=== PATIENT | male | born 1955 ===

== ENCOUNTER 2022-08-01 22:43 | Emergency (ER) | payer BC ==
--- OUTSIDE RECORDS SUMMARY | 2022-08-01 22:47 | XMS REPORT | Continuity of Care Document ---
:1955 Author Organization [facility] t Address [address] [facility]. [address] [place] [address] Care Team Providers Name Role Phone Lai Richmond MD Primary Care Physician Jamilah_Juju Attending Clinician Unavailable Kirby Askew Attending Clinician [phone] Jamilah_Juju Admitting Clinician Unavailable KIRBY ASKEW Admitting Clinician Unavailable Payers Payer Name Policy Type Policy Number Effective Date Expiration Date S n[place] [id number] 2016 - [employer] (POS) 00:00:00 Problems Condition Condition Condition Status Onset Resolution Last Treating Co mments Source Name Details Category Date Date Treatment Clinician Date Carcinoma Carcinoma Problem Active [facility]14 [facility] prostate Prostate 00:00: Urolog y 00 Prostate Prostate Disease Active [facility] [address] [facility] 00:00: [facility]ospita 00 l Allergies, Adverse Reactions, Alerts Allergy Allergy Status Severity Reaction(s) Onset Inactive Treating Comm ents Source Name Type Date Date Clinician No Known DA Active [facility] 2018-02 [facility] [place] [facility] No Known DA Active [facility] 2018-02 [facility] [place] [facility] 00[facility] [place] DA Active [place] [facility] 6[facility]14 [place] 00:[facility]: [facility] 00 dic [facility]osp[facility] l Social History Social Habit Start Date Stop Date Quantity Comments Source [facility] History of tobacco Occasional [facility] tobacco smoker Hospital Alcohol intake 2019-04-30 2019-04-30 Current drinker [facility] 00:00:00 00:00:00 of alcohol Hospital (finding) History of Social 2019-04-30 2019-04-[address] function 00:00:00 00:00:00 Hospital Tobacco use and 2019-04-29 2019-04-29 Smokeless tobacco [facility] exposure 00:00:00 00:00:00 non-user Hospital Alcohol Comment 2019-04-20 2019-04-20 very rare [facility] 00:00:00 00:00:00 Hospital Tobacco Comment 2019-04-20 2019-04-20 1-2 cigars per [facility] 00:00:00 00:00:00 week Hospital Sex Assigned At [birth year] [facility] 00:00:00 00:00:00 [facility] Smoking Status Start Date Stop Date Source Never Smoker [facility] Occasional tobacco smoker 2019-04-29 00:00:00 [facility] Medications Ordered Filled Start Stop Current Ordering Indication Dosage Frequency Signature Comments Components Source Medication Medication Date Date Medication? Clinician (SIG) Name Name glimepiride Yes 2mg QD Take 2 mg M ethodi (AMARYL) 2 3-[address] MG tablet 19:22: nightly. Hosp lucrecia 10 l gluc 2019-0 Yes 1{tbl} Q.5D Take 1 [facility] lama/chondro 3-[address] lama A/vit 19:22: mouth 2 Hospit a C/Mn 10 (two) l (GLUCOSAMIN times a E 1500 day. COMPLEX ORAL) amLODIPine- 0 Yes 1{capsu QD Take 1 M ethodi benazepriL 3-13 le} capsule by st (LOTREL) 19:22: mouth Hospita 10-40 mg 10 nightly. l per capsule atorvastati Yes 20mg QD Take 20 mg Method[facility] n (LIPITOR) 3-[address] 20 MG 19:22: every Hospita tablet 10 morning. l colchicine 2019-0 Yes .6mg QD Take 0.6 Met hodi 0.6 mg 3-[address] capsule 19:22: mouth Hospita 10 nightly as l needed. levothyroxi 2020-0 Yes 25ug QD Take 25 Met hodi ne 3-[address] (SYNTHROID) 19:22: mouth Hospi ta 25 mcg 10 nightly. l tablet methocarbam 2020-0 Yes 750mg Q6H Take 750 M ethodi oL 3-[address] (ROBAXIN) 19:22: mouth Hospita 750 MG 10 every 6 l tablet (six) hours as needed. pantoprazol 2020-0 Yes 40mg Take 40 mg [facility] e 3-[address] (PROTONIX) 19:22: as needed. H ospita 40 MG EC 10 l tablet pregabalin 2020-0 Yes 50mg Q.5D Take 50 mg M ethodi (LYRICA) 50 3-[address] MG capsule 19:22: (two) Hospit a 10 times a l day. amlodipine amlodipine No amlodipine [place] 10 10 10 [facility] mg-benazepr mg-benazepr mg-benazep Urology il 40 mg il 40 mg ril 40 mg capsule capsule capsule TAKE 1 TAKE 1 TAKE 1 CAPSULE BY CAPSULE BY CAPSULE BY MOUTH DAILY MOUTH DAILY MOUTH DAILY atorvastati atorvastati No atorvastat [place] n 40 mg n 40 mg in 40 mg [facility] tablet TAKE tablet TAKE tablet Urology 1 TABLET BY 1 TABLET BY TAKE 1 MOUTH DAILY MOUTH DAILY TABLET BY MOUTH DAILY Bi Mix DS 5 Bi Mix DS 5 No Bi Mix DS [place] mL vial. mL vial. 5 mL vial. M etro Papaverine Papaverine Papaverine Urology HCl HCl HCl 30mg/mL, 30mg/mL, 30mg/mL, Phentolamin Phentolamin Phentolami e Mesylate e Mesylate ne 2mg/mL 2mg/mL Mesylate start @ start @ 2mg/mL 0.1cc and 0.1cc and start @ can titrate can titrate 0.1cc and up up can titrate up clopidogrel clopidogrel No clopidogre [place] 75 mg 75 mg l 75 mg [facility] tablet TAKE tablet TAKE tablet Urology 1 TABLET BY 1 TABLET BY TAKE 1 MOUTH DAILY MOUTH DAILY TABLET BY MOUTH DAILY colchicine colchicine No colchicine [place] 0.6 mg 0.6 mg 0.6 mg [facility] capsule capsule capsule Urolog y colestipol colestipol No colestipol [place] 1 gram 1 gram 1 gram [facility] tablet tablet tablet Urology COMPOUNDED COMPOUNDED No COMPOUNDED [place] MEDICATION MEDICATION MEDICATION [facility] TADALAFIL TADALAFIL TADALAFIL Urology (SR)(SIZE (SR)(SIZE (SR)(SIZE 1) 7 MG 1) 7 MG 1) 7 MG CAPSULE CAPSULE CAPSULE TAKE 1 TAKE 1 TAKE 1 CAPSULE BY CAPSULE BY CAPSULE BY MOUTH DAILY MOUTH DAILY MOUTH DAILY dexamethaso dexamethaso No dexamethas [place] ne ne one [facility] glimepiride glimepiride No glimepirid [place] 4 mg tablet 4 mg tablet e 4 mg [facility] TAKE 1 TAKE 1 tablet Urology TABLET BY TABLET BY TAKE 1 MOUTH DAILY MOUTH DAILY TABLET BY MOUTH DAILY levothyroxi levothyroxi No levothyrox [place] ne 25 mcg ne 25 mcg ine 25 mcg [facility] tablet TAKE tablet TAKE tablet Urology 1 TABLET BY 1 TABLET BY TAKE 1 MOUTH EVERY MOUTH EVERY TABLET BY MORNING ON MORNING ON MOUTH AN EMPTY AN EMPTY EVERY STOMACH STOMACH MORNING ON AN EMPTY STOMACH lidocaine-p lidocaine-p No lidocaine- [place] rilocaine rilocaine prilocaine [facility] 2.5 %-2.5 % 2.5 %-2.5 % 2.5 %-2.5 Urology topical topical % topical cream cream cream methocarbam methocarbam No methocarba [place] ol 750 mg ol 750 mg mol 750 mg [facility] tablet tablet tablet Urology ofloxacin ofloxacin No ofloxacin [place] 0.3 % ear 0.3 % ear 0.3 % ear [facility] drops drops drops Urology pantoprazol pantoprazol No pantoprazo [place] e 40 mg e 40 mg le 40 mg [facility] tablet,carissa tablet,carissa tablet,del Urology yed release yed release ayed release pregabalin pregabalin No pregabalin [place] 75 mg 75 mg 75 mg [facility] capsule capsule capsule Urolog y TAKE 1 TAKE 1 TAKE 1 CAPSULE BY CAPSULE BY CAPSULE BY MOUTH TWICE MOUTH TWICE MOUTH DAILY DAILY TWICE DAILY Quad Mix Quad Mix No Quad Mix [facility] 5ML 5ML 5ML [facility] Vial.Papave Vial.Papave Vial.Papav Urology rine rine erine 30mg/mL, 30mg/mL, 30mg/mL, Phentolamin Phentolamin Phentolami e 2mg/mL, e 2mg/mL, ne 2mg/mL, Prostagland Prostagland Prostaglan in E1 in E1 din E1 20mcg/mL, 20mcg/mL, 20mcg/mL, Atropine Atropine Atropine Sulfate Sulfate Sulfate 200mcg/mL 200mcg/mL 200mcg/mL start @ start @ start @ 0.1cc and 0.1cc and 0.1cc and can titrate can titrate can up up titrate up Quad mix DS Quad mix DS No Quad mix [place] 5 mL vial. 5 mL vial. DS 5 mL [facility] Papaverine Papaverine vial. Ur ology 30mg/mL, 30mg/mL, Papaverine Phentolamin Phentolamin 30mg/mL, e Mesylate e Mesylate Phentolami 4mg/mL, 4mg/mL, ne Prostagland Prostagland Mesylate in E1 in E1 4mg/mL, 40mcg/mL, 40mcg/mL, Prostaglan Atropine Atropine din E1 Sulfate Sulfate 40mcg/mL, 400mcg/mL 400mcg/mL Atropine start @ start @ Sulfate 0.1cc & can 0.1cc & can 400mcg/mL titrate up titrate up start @ 0.1cc & can titrate up Tadalafil 7 Tadalafil 7 No Tadalafil [place] mg 7 mg mg 7 mg 7 mg 7 mg Metr o orally orally orally Urology 30-60 30-60 30-60 minutes minutes minutes prior to prior to prior to sexual sexual sexual activity 1 activity 1 activity 1 po qd po qd po qd triamcinolo triamcinolo No triamcinol [place] ne ne one [facility] acetonide acetonide acetonide Urology 0.1 % 0.1 % 0.1 % topical topical topical cream cream cream amlodipine amlodipine No amlodipine [place] 10 10 10 [facility] mg-benazepr mg-benazepr mg-benazep Urology il 40 mg il 40 mg ril 40 mg capsule capsule capsule TAKE 1 TAKE 1 TAKE 1 CAPSULE BY CAPSULE BY CAPSULE BY MOUTH DAILY MOUTH DAILY MOUTH DAILY atorvastati atorvastati No atorvastat [place] n 40 mg n 40 mg in 40 mg [facility] tablet TAKE tablet TAKE tablet Urology 1 TABLET BY 1 TABLET BY TAKE 1 MOUTH DAILY MOUTH DAILY TABLET BY MOUTH DAILY BD BD No BD [place] Ultra-Fine Ultra-Fine Ultra-Fine [facility] Mini Pen Mini Pen Mini Pen Uro logy Needle 31 Needle 31 Needle 31 gauge x gauge x gauge x 3" USE 05/02" USE 05/02" USE ONCE A DAY ONCE A DAY ONCE A DAY clopidogrel clopidogrel No clopidogre [place] 75 mg 75 mg l 75 mg [facility] tablet TAKE tablet TAKE tablet Urology 1 TABLET BY 1 TABLET BY TAKE 1 MOUTH DAILY MOUTH DAILY TABLET BY MOUTH DAILY colchicine colchicine No colchicine [place] 0.6 mg 0.6 mg 0.6 mg [facility] capsule capsule capsule Urolog y colestipol colestipol No colestipol [place] 1 gram 1 gram 1 gram [facility] tablet TAKE tablet TAKE tablet Urology 1 TABLET BY 1 TABLET BY TAKE 1 MOUTH TWICE MOUTH TWICE TABLET BY DAILY WITH DAILY WITH MOUTH FLUID. FLUID. TWICE GIVEN FOR GIVEN FOR DAILY WITH DIARRHEA DIARRHEA FLUID. GIVEN FOR DIARRHEA dexamethaso dexamethaso No dexamethas [place] ne ne one [facility] glimepiride glimepiride No glimepirid [place] 4 mg tablet 4 mg tablet e 4 mg [facility] TAKE 1 TAKE 1 tablet Urology TABLET BY TABLET BY TAKE 1 MOUTH DAILY MOUTH DAILY TABLET BY MOUTH DAILY levothyroxi levothyroxi No levothyrox [place] ne 25 mcg ne 25 mcg ine 25 mcg [facility] tablet TAKE tablet TAKE tablet Urology 1 TABLET BY 1 TABLET BY TAKE 1 MOUTH EVERY MOUTH EVERY TABLET BY MORNING ON MORNING ON MOUTH AN EMPTY AN EMPTY EVERY STOMACH STOMACH MORNING ON AN EMPTY STOMACH methocarbam methocarbam No methocarba [place] ol 750 mg ol 750 mg mol 750 mg [facility] tablet tablet tablet Urology pantoprazol pantoprazol No pantoprazo [place] e 40 mg e 40 mg le 40 mg [facility] tablet,carissa tablet,carissa tablet,del Urology yed release yed release ayed release pioglitazon pioglitazon No pioglitazo [place] e 15 mg e 15 mg ne 15 mg [facility] tablet TAKE tablet TAKE tablet Urology 1 TABLET BY 1 TABLET BY TAKE 1 MOUTH EVERY MOUTH EVERY TABLET BY DAY DAY MOUTH EVERY DAY pregabalin pregabalin No pregabalin [place] 75 mg 75 mg 75 mg [facility] capsule capsule capsule Urolog y TAKE 1 TAKE 1 TAKE 1 CAPSULE BY CAPSULE BY CAPSULE BY MOUTH TWICE MOUTH TWICE MOUTH DAILY DAILY TWICE DAILY Quad mix DS Quad mix DS No Quad mix [place] 5 mL vial. 5 mL vial. DS 5 mL [facility] Papaverine Papaverine vial. Ur ology 30mg/mL, 30mg/mL, Papaverine Phentolamin Phentolamin 30mg/mL, e Mesylate e Mesylate Phentolami 4mg/mL, 4mg/mL, ne Prostagland Prostagland Mesylate in E1 in E1 4mg/mL, 40mcg/mL, 40mcg/mL, Prostaglan Atropine Atropine din E1 Sulfate Sulfate 40mcg/mL, 400mcg/mL 400mcg/mL Atropine start @ start @ Sulfate 0.1cc and 0.1cc and 400mcg/mL can titrate can titrate start @ up up 0.1cc and can titrate up Tadalafil 7 Tadalafil 7 No Tadalafil [facility] mg 7 mg mg 7 mg 7 mg 7 mg Met[facility] o orally orally orally Urology 30-60 30-60 30-60 minutes minutes minutes prior to prior to prior to sexual sexual sexual activity 1 activity 1 activity 1 po qd po qd po qd testosteron testosteron No .5mL Q1W testostero [facility] e cypionate e cypionate ne M etro 200 mg/mL 200 mg/mL cypionate Urology intramuscul intramuscul 200 mg/mL ar oil ar oil intramuscu Inject 0.5 Inject 0.5 lar oil mL every mL every Inject 0.5 week by week by mL every intramuscul intramuscul week by ar route. ar route. intramuscu lar route. Xyosted 100 Xyosted 100 No 100mg Q1W Xyosted [place] mg/0.5 mL mg/0.5 mL 100 mg/0.5 [facility] subcutaneou subcutaneou mL U rology s s subcutaneo auto-inject auto-inject us or Inject or Inject auto-injec 100 mg 100 mg tor Inject every week every week 100 mg by by every week subcutaneou subcutaneou by s route. s route. subcutaneo us route. amlodipine amlodipine No amlodipine [facility] 10 mg 10 mg 10 mg [facility] tablet TAKE tablet TAKE tablet Urology 1 TABLET BY 1 TABLET BY TAKE 1 MOUTH EVERY MOUTH EVERY TABLET BY DAY DAY MOUTH EVERY DAY amlodipine amlodipine No amlodipine [facility] 10 10 10 [facility] mg-benazepr mg-benazepr mg-benazep Urology il 40 mg il 40 mg ril 40 mg capsule capsule capsule TAKE 1 TAKE 1 TAKE 1 CAPSULE BY CAPSULE BY CAPSULE BY MOUTH DAILY MOUTH DAILY MOUTH DAILY amoxicillin amoxicillin No amoxicilli [place] [phone] 875 [facility] mg-potassiu mg-potassiu mg-potassi Urology m m um clavulanate clavulanate clavulanat 125 mg 125 mg e 125 mg tablet tablet tablet atorvastati atorvastati No atorvastat [place] n 40 mg n 40 mg in 40 mg [facility] tablet TAKE tablet TAKE tablet Urology 1 TABLET BY 1 TABLET BY TAKE 1 MOUTH DAILY MOUTH DAILY TABLET BY MOUTH DAILY BD BD No BD [place] Ultra-Fine Ultra-Fine Ultra-Fine [facility] Mini Pen Mini Pen Mini Pen Uro logy Needle 31 Needle 31 Needle 31 gauge x gauge x gauge x 3/16" USE 316" USE 316" USE ONCE A DAY ONCE A DAY ONCE A DAY benazepril benazepril No benazepril [place] 40 mg 40 mg 40 mg [facility] tablet TAKE tablet TAKE tablet Urology 1 TABLET BY 1 TABLET BY TAKE 1 MOUTH EVERY MOUTH EVERY TABLET BY DAY DAY MOUTH EVERY DAY benzonatate benzonatate No benzonatat [place] 100 mg 100 mg e 100 mg [facility] capsule capsule capsule Urolog y clindamycin clindamycin No clindamyci [place] HCl 300 mg HCl 300 mg n HCl 300 [facility] capsule capsule mg capsule Uro logy clopidogrel clopidogrel No clopidogre [place] 75 mg 75 mg l 75 mg [facility] tablet TAKE tablet TAKE tablet Urology 1 TABLET BY 1 TABLET BY TAKE 1 MOUTH DAILY MOUTH DAILY TABLET BY MOUTH DAILY colchicine colchicine No colchicine [place] 0.6 mg 0.6 mg 0.6 mg [facility] capsule capsule capsule Urolog y colesevelam colesevelam No colesevela [place] 625 mg 625 mg m 625 mg [facility] tablet tablet tablet Urology colestipol colestipol No colestipol [place] 1 gram 1 gram 1 gram [facility] tablet TAKE tablet TAKE tablet Urology 1 TABLET BY 1 TABLET BY TAKE 1 MOUTH TWICE MOUTH TWICE TABLET BY DAILY WITH DAILY WITH MOUTH FLUID. FLUID. TWICE GIVEN FOR GIVEN FOR DAILY WITH DIARRHEA DIARRHEA FLUID. GIVEN FOR DIARRHEA dexamethaso dexamethaso No dexamethas [place] ne ne one [facility] glimepiride glimepiride No glimepirid [place] 4 mg tablet 4 mg tablet e 4 mg [facility] TAKE 2 TAKE 2 tablet Urology TABLETS BY TABLETS BY TAKE 2 MOUTH EVERY MOUTH EVERY TABLETS BY DAY DAY MOUTH EVERY DAY ibuprofen ibuprofen No ibuprofen [place] 800 mg 800 mg 800 mg [facility] tablet tablet tablet Urology levothyroxi levothyroxi No levothyrox [place] ne 25 mcg ne 25 mcg ine 25 mcg [facility] tablet TAKE tablet TAKE tablet Urology 1 TABLET BY 1 TABLET BY TAKE 1 MOUTH EVERY MOUTH EVERY TABLET BY MORNING ON MORNING ON MOUTH AN EMPTY AN EMPTY EVERY STOMACH STOMACH MORNING ON AN EMPTY STOMACH methocarbam methocarbam No methocarba [place] ol 750 mg ol 750 mg mol 750 mg [facility] tablet tablet tablet Urology pantoprazol pantoprazol No pantoprazo [place] e 40 mg e 40 mg le 40 mg [facility] tablet,carissa tablet,carissa tablet,del Urology yed release yed release ayed release pioglitazon pioglitazon No pioglitazo [place] e 15 mg e 15 mg ne 15 mg [facility] tablet TAKE tablet TAKE tablet Urology 1 TABLET BY 1 TABLET BY TAKE 1 MOUTH EVERY MOUTH EVERY TABLET BY DAY DAY MOUTH EVERY DAY pregabalin pregabalin No pregabalin [place] 75 mg 75 mg 75 mg [facility] capsule capsule capsule Urolog y TAKE ONE TAKE ONE TAKE ONE CAPSULE BY CAPSULE BY CAPSULE BY MOUTH TWICE MOUTH TWICE MOUTH DAILY DAILY TWICE DAILY promethazin promethazin No promethazi [place] e-DM 6.25 e-DM 6.25 ne-DM 6.25 [facility] mg-15 mg/5 mg-15 mg/5 mg-15 mg/5 Urology mL oral mL oral mL oral syrup syrup syrup Quad mix DS Quad mix DS No Quad mix [place] 5 mL vial. 5 mL vial. DS 5 mL [facility] Papaverine Papaverine vial. Ur ology 30mg/mL, 30mg/mL, Papaverine Phentolamin Phentolamin 30mg/mL, e Mesylate e Mesylate Phentolami 4mg/mL, 4mg/mL, ne Prostagland Prostagland Mesylate in E1 in E1 4mg/mL, 40mcg/mL, 40mcg/mL, Prostaglan Atropine Atropine din E1 Sulfate Sulfate 40mcg/mL, 400mcg/mL 400mcg/mL Atropine start @ start @ Sulfate 0.1cc & can 0.1cc & can 400mcg/mL titrate up titrate up start @ 0.1cc & can titrate up Tadalafil 7 Tadalafil 7 No Tadalafil [facility] mg 7 mg mg 7 mg 7 mg 7 mg [facility] o orally orally orally Urology 30-60 30-60 30-60 minutes minutes minutes prior to prior to prior to sexual sexual sexual activity 1 activity 1 activity 1 po qd po qd po qd testosteron testosteron No testostero [facility] e cypionate e cypionate ne M etro 200 mg/mL 200 mg/mL cypionate Urology intramuscul intramuscul 200 mg/mL ar oil ar oil intramuscu INJECT 0.5 INJECT 0.5 lar oil ML IN ML IN INJECT 0.5 MUSCLE ONCE MUSCLE ONCE ML IN A WEEK A WEEK MUSCLE ONCE A WEEK Maile Gr No Maile [place] [facility]Star [facility] U-300 U-300 U-300 Urology Insulin 300 Insulin 300 Insulin unit/mL unit/mL 300 (1.5 mL) (1.5 mL) unit/mL subcutaneou subcutaneou (1.5 mL) s pen s pen subcutaneo INJECT 20 INJECT 20 us pen UNITS UNDER UNITS UNDER INJECT 20 THE SKIN THE SKIN UNITS SAME TIME SAME TIME UNDER THE EACH DAY EACH DAY SKIN SAME TIME EACH DAY Xyosted 100 Xyosted 100 No 100mg Q1W Xyosted [facility] mg/0.5 mL mg/0.5 mL 100 mg/0.5 [facility] subcutaneou subcutaneou mL U rology s s subcutaneo auto-inject auto-inject us or Inject or Inject auto-injec 100 mg 100 mg tor Inject every week every week 100 mg by by every week subcutaneou subcutaneou by s route. s route. subcutaneo us route. amlodipine amlodipine No amlodipine [place] 10 mg 10 mg 10 mg [facility] tablet TAKE tablet TAKE tablet Urology 1 TABLET BY 1 TABLET BY TAKE 1 MOUTH EVERY MOUTH EVERY TABLET BY DAY DAY MOUTH EVERY DAY atorvastati atorvastati No atorvastat [place] n 40 mg n 40 mg in 40 mg [facility] tablet TAKE tablet TAKE tablet Urology 1 TABLET BY 1 TABLET BY TAKE 1 MOUTH DAILY MOUTH DAILY TABLET BY MOUTH DAILY benazepril benazepril No benazepril [place] 40 mg 40 mg 40 mg [facility] tablet TAKE tablet TAKE tablet Urology 1 TABLET BY 1 TABLET BY TAKE 1 MOUTH EVERY MOUTH EVERY TABLET BY DAY DAY MOUTH EVERY DAY clopidogrel clopidogrel No clopidogre [place] 75 mg 75 mg l 75 mg [facility] tablet TAKE tablet TAKE tablet Urology 1 TABLET BY 1 TABLET BY TAKE 1 MOUTH DAILY MOUTH DAILY TABLET BY MOUTH DAILY colesevelam colesevelam No colesevela [place] 625 mg 625 mg m 625 mg [facility] tablet tablet tablet Urology colestipol colestipol No colestipol [place] 1 gram 1 gram 1 gram [facility] tablet TAKE tablet TAKE tablet Urology 1 TABLET BY 1 TABLET BY TAKE 1 MOUTH TWICE MOUTH TWICE TABLET BY DAILY WITH DAILY WITH MOUTH FLUID. FLUID. TWICE GIVEN FOR GIVEN FOR DAILY WITH DIARRHEA DIARRHEA FLUID. GIVEN FOR DIARRHEA dexamethaso dexamethaso No dexamethas [place] ne ne one [facility] glimepiride glimepiride No glimepirid [place] 4 mg tablet 4 mg tablet e 4 mg [facility] TAKE 2 TAKE 2 tablet Urology TABLETS BY TABLETS BY TAKE 2 MOUTH EVERY MOUTH EVERY TABLETS BY DAY DAY MOUTH EVERY DAY ibuprofen ibuprofen No ibuprofen [place] 800 mg 800 mg 800 mg [facility] tablet tablet tablet Urology levothyroxi levothyroxi No levothyrox [place] ne 25 mcg ne 25 mcg ine 25 mcg [facility] tablet TAKE tablet TAKE tablet Urology 1 TABLET BY 1 TABLET BY TAKE 1 MOUTH EVERY MOUTH EVERY TABLET BY MORNING ON MORNING ON MOUTH AN EMPTY AN EMPTY EVERY STOMACH STOMACH MORNING ON AN EMPTY STOMACH pantoprazol pantoprazol No pantoprazo [place] e 40 mg e 40 mg le 40 mg [facility] tablet,carissa tablet,carissa tablet,del Urology yed release yed release ayed release pioglitazon pioglitazon No pioglitazo [place] e 15 mg e 15 mg ne 15 mg [facility] tablet TAKE tablet TAKE tablet Urology 1 TABLET BY 1 TABLET BY TAKE 1 MOUTH EVERY MOUTH EVERY TABLET BY DAY DAY MOUTH EVERY DAY pregabalin pregabalin No pregabalin [place] 75 mg 75 mg 75 mg [facility] capsule capsule capsule Urolog y TAKE ONE TAKE ONE TAKE ONE CAPSULE BY CAPSULE BY CAPSULE BY MOUTH TWICE MOUTH TWICE MOUTH DAILY DAILY TWICE DAILY Quad mix DS Quad mix DS No Quad mix [place] 5 mL vial. 5 mL vial. DS 5 mL [facility] Papaverine Papaverine vial. Ur ology 30mg/mL, 30mg/mL, Papaverine Phentolamin Phentolamin 30mg/mL, e Mesylate e Mesylate Phentolami 4mg/mL, 4mg/mL, ne Prostagland Prostagland Mesylate in E1 in E1 4mg/mL, 40mcg/mL, 40mcg/mL, Prostaglan Atropine Atropine din E1 Sulfate Sulfate 40mcg/mL, 400mcg/mL 400mcg/mL Atropine start @ start @ Sulfate 0.1cc & can 0.1cc & can 400mcg/mL titrate up titrate up start @ 0.1cc & can titrate up Tadalafil 7 Tadalafil 7 No Tadalafil [facility] mg 7 mg mg 7 mg 7 mg 7 mg Met[facility] o orally orally orally Urology 30-60 30-60 30-60 minutes minutes minutes prior to prior to prior to sexual sexual sexual activity 1 activity 1 activity 1 po qd po qd po qd testosteron testosteron No testostero [place] e cypionate e cypionate ne M etro 200 mg/mL 200 mg/mL cypionate Urology intramuscul intramuscul 200 mg/mL ar oil ar oil intramuscu INJECT 0.5 INJECT 0.5 lar oil ML IN ML IN INJECT 0.5 MUSCLE ONCE MUSCLE ONCE ML IN A WEEK A WEEK MUSCLE ONCE A WEEK Toukavithaquique [facility] Met [facility] U-300 U-300 U-300 Urology Insulin 300 Insulin 300 Insulin unit/mL unit/mL 300 (1.5 mL) (1.5 mL) unit/mL subcutaneou subcutaneou (1.5 mL) s pen s pen subcutaneo ADMINISTER ADMINISTER us pen 20 UNITS 20 UNITS ADMINISTER UNDER THE UNDER THE 20 UNITS SKIN AT THE SKIN AT THE UNDER THE SAME TIME SAME TIME SKIN AT EVERY DAY EVERY DAY THE SAME TIME EVERY DAY amlodipine amlodipine No amlodipine [place] 10 mg 10 mg 10 mg [facility] tablet TAKE tablet TAKE tablet Urology 1 TABLET BY 1 TABLET BY TAKE 1 MOUTH EVERY MOUTH EVERY TABLET BY DAY DAY MOUTH EVERY DAY amoxicillin amoxicillin No amoxicilli [place] 500 mg 500 mg n 500 mg [facility] tablet tablet tablet Urology BD BD No BD [place] Ultra-Fine Ultra-Fine Ultra-Fine [facility] Mini Pen Mini Pen Mini Pen Uro logy Needle 31 Needle 31 Needle 31 gauge x gauge x gauge x 3/16" USE 3/16" USE 05/02" USE ONCE A DAY ONCE A DAY ONCE A DAY benazepril benazepril No benazepril [place] 40 mg 40 mg 40 mg [facility] tablet TAKE tablet TAKE tablet Urology 1 TABLET BY 1 TABLET BY TAKE 1 MOUTH EVERY MOUTH EVERY TABLET BY DAY DAY MOUTH EVERY DAY clopidogrel clopidogrel No clopidogre [place] 75 mg 75 mg l 75 mg [facility] tablet TAKE tablet TAKE tablet Urology 1 TABLET BY 1 TABLET BY TAKE 1 MOUTH DAILY MOUTH DAILY TABLET BY MOUTH DAILY colesevelam colesevelam No colesevela [place] 625 mg 625 mg m 625 mg [facility] tablet tablet tablet Urology colestipol colestipol No colestipol [place] 1 gram 1 gram 1 gram [facility] tablet TAKE tablet TAKE tablet Urology 1 TABLET BY 1 TABLET BY TAKE 1 MOUTH TWICE MOUTH TWICE TABLET BY DAILY WITH DAILY WITH MOUTH FLUID. FLUID. TWICE GIVEN FOR GIVEN FOR DAILY WITH DIARRHEA DIARRHEA FLUID. GIVEN FOR DIARRHEA dexamethaso dexamethaso No dexamethas [place] ne ne one [facility] FreeStyle FreeStyle No FreeStyle [place] Henry 2 Henry 2 Henry 2 [facility] Sensor kit Sensor kit Sensor kit Urology USE 1 EVERY USE 1 EVERY USE 1 14 DAYS. 14 DAYS. EVERY 14 DAYS. levothyroxi levothyroxi No levothyrox [place] ne 25 mcg ne 25 mcg ine 25 mcg [facility] tablet TAKE tablet TAKE tablet Urology 1 TABLET BY 1 TABLET BY TAKE 1 MOUTH EVERY MOUTH EVERY TABLET BY MORNING ON MORNING ON MOUTH AN EMPTY AN EMPTY EVERY STOMACH STOMACH MORNING ON AN EMPTY STOMACH pantoprazol pantoprazol No pantoprazo [place] e 40 mg e 40 mg le 40 mg [facility] tablet,carissa tablet,carissa tablet,del Urology yed release yed release ayed release pioglitazon pioglitazon No pioglitazo [place] e 15 mg e 15 mg ne 15 mg [facility] tablet TAKE tablet TAKE tablet Urology 1 TABLET BY 1 TABLET BY TAKE 1 MOUTH EVERY MOUTH EVERY TABLET BY DAY DAY MOUTH EVERY DAY pregabalin pregabalin No pregabalin [place] 75 mg 75 mg 75 mg [facility] capsule capsule capsule Urolog y TAKE 1 TAKE 1 TAKE 1 CAPSULE BY CAPSULE BY CAPSULE BY MOUTH TWICE MOUTH TWICE MOUTH DAILY DAILY TWICE DAILY Quad mix DS Quad mix DS No Quad mix [place] 5 mL vial. 5 mL vial. DS 5 mL [facility] Papaverine Papaverine vial. Ur ology 30mg/mL, 30mg/mL, Papaverine Phentolamin Phentolamin 30mg/mL, e Mesylate e Mesylate Phentolami 4mg/mL, 4mg/mL, ne Prostagland Prostagland Mesylate in E1 in E1 4mg/mL, 40mcg/mL, 40mcg/mL, Prostaglan Atropine Atropine din E1 Sulfate Sulfate 40mcg/mL, 400mcg/mL 400mcg/mL Atropine start @ start @ Sulfate 0.1cc & can 0.1cc & can 400mcg/mL titrate up titrate up start @ 0.1cc & can titrate up Sutab Sutab No Sutab [place] 1.479-0.188 1.479-0.188 1.479-0.18 [facility] -0.225 gram -0.225 gram 8-0.225 Urology tablet TAKE tablet TAKE gram DIRECTED DIRECTED tablet BY BY TAKE PHYSICIAN PHYSICIAN DIRECTED BY PHYSICIAN Tadalafil 7 Tadalafil 7 No [facility] mg 7 mg mg 7 mg 7 mg 7 mg Metr o orally orally orally Urology 30-60 30-60 30-60 minutes minutes minutes prior to prior to prior to sexual sexual sexual activity 1 activity 1 activity 1 po qd po qd po qd [facility] cypionate ne M etro 200 mg/mL 200 mg/mL cypionate Urology intramuscul intramuscul 200 mg/mL ar oil ar oil intramuscu INJECT 0.5 INJECT 0.5 lar oil ML IN ML IN INJECT 0.5 MUSCLE ONCE MUSCLE ONCE ML IN A WEEK A WEEK MUSCLE ONCE A WEEK Maile Gr No [facility] SoloStar SoloStar SoloStar Met ro U-300 U-300 U-300 Urology Insulin 300 Insulin 300 Insulin unit/mL unit/mL 300 (1.5 mL) (1.5 mL) unit/mL subcutaneou subcutaneou (1.5 mL) s pen s pen subcutaneo ADMINISTER ADMINISTER us pen 20 UNITS 20 UNITS ADMINISTER UNDER THE UNDER THE 20 UNITS SKIN AT THE SKIN AT THE UNDER THE SAME TIME SAME TIME SKIN AT EVERY DAY EVERY DAY THE SAME TIME EVERY DAY amlodipine amlodipine No amlodipine [place] 10 10 10 [facility] mg-benazepr mg-benazepr mg-benazep Urology il 40 mg il 40 mg ril 40 mg capsule capsule capsule TAKE 1 TAKE 1 TAKE 1 CAPSULE BY CAPSULE BY CAPSULE BY MOUTH DAILY MOUTH DAILY MOUTH DAILY atorvastati atorvastati No atorvastat [place] n 40 mg n 40 mg in 40 mg Metro tablet TAKE tablet TAKE tablet Urology 1 TABLET BY 1 TABLET BY TAKE 1 MOUTH DAILY MOUTH DAILY TABLET BY MOUTH DAILY Bi Mix DS 5 Bi Mix DS 5 No Bi Mix DS [facility] mL vial. mL vial. 5 mL vial. M etro Papaverine Papaverine Papaverine Urology HCl HCl HCl 30mg/mL, 30mg/mL, 30mg/mL, Phentolamin Phentolamin Phentolami e Mesylate e Mesylate ne 2mg/mL 2mg/mL Mesylate start @ start @ 2mg/mL 0.1cc and 0.1cc and start @ can titrate can titrate 0.1cc and up up can titrate up clopidogrel clopidogrel No clopidogre [place] 75 mg 75 mg l 75 mg [facility] tablet TAKE tablet TAKE tablet Urology 1 TABLET BY 1 TABLET BY TAKE 1 MOUTH DAILY MOUTH DAILY TABLET BY MOUTH DAILY colchicine colchicine No colchicine [place] 0.6 mg 0.6 mg 0.6 mg [facility] capsule capsule capsule Urolog y colestipol colestipol No colestipol [place] 1 gram 1 gram 1 gram Metro tablet tablet tablet Urology dexamethaso dexamethaso No dexamethas [place] ne ne one [facility] Urology glimepiride glimepiride No glimepirid [place] 4 mg tablet 4 mg tablet e 4 mg Metro TAKE 1 TAKE 1 tablet Urology TABLET BY TABLET BY TAKE 1 MOUTH DAILY MOUTH DAILY TABLET BY MOUTH DAILY levothyroxi levothyroxi No levothyrox [place] ne 25 mcg ne 25 mcg ine 25 mcg [facility] tablet TAKE tablet TAKE tablet Urology 1 TABLET BY 1 TABLET BY TAKE 1 MOUTH EVERY MOUTH EVERY TABLET BY MORNING ON MORNING ON MOUTH AN EMPTY AN EMPTY EVERY STOMACH STOMACH MORNING ON AN EMPTY STOMACH lidocaine-p lidocaine-p No lidocaine- [place] rilocaine rilocaine prilocaine [facility] 2.5 %-2.5 % 2.5 %-2.5 % 2.5 %-2.5 Urology topical topical % topical cream cream cream methocarbam methocarbam No methocarba [place] ol 750 mg ol 750 mg mol 750 mg [facility] tablet tablet tablet Urology ofloxacin ofloxacin No ofloxacin [place] 0.3 % ear 0.3 % ear 0.3 % ear [facility] drops drops drops Urology pantoprazol pantoprazol No pantoprazo [place] e 40 mg e 40 mg le 40 mg Metro tablet,carissa tablet,carissa tablet,del Urology yed release yed release ayed release pregabalin pregabalin No pregabalin [place] 75 mg 75 mg 75 mg [facility] capsule capsule capsule Urolog y TAKE 1 TAKE 1 TAKE 1 CAPSULE BY CAPSULE BY CAPSULE BY MOUTH TWICE MOUTH TWICE MOUTH DAILY DAILY TWICE DAILY Quad Mix Quad Mix No Quad Mix Solis ston 5ML 5ML 5ML [facility] Vial.Papave Vial.Papave Vial.Papav Urology rine rine erine 30mg/mL, 30mg/mL, 30mg/mL, Phentolamin Phentolamin Phentolami e 2mg/mL, e 2mg/mL, ne 2mg/mL, Prostagland Prostagland Prostaglan in E1 in E1 din E1 20mcg/mL, 20mcg/mL, 20mcg/mL, Atropine Atropine Atropine Sulfate Sulfate Sulfate 200mcg/mL 200mcg/mL 200mcg/mL start @ start @ start @ 0.1cc and 0.1cc and 0.1cc and can titrate can titrate can up up titrate up Tadalafil 7 Tadalafil 7 No Tadalafil [place] mg 7 mg mg 7 mg 7 mg 7 mg Metr o orally orally orally Urology 30-60 30-60 30-60 minutes minutes minutes prior to prior to prior to sexual sexual sexual activity activity activity triamcinolo triamcinolo No triamcinol [place] ne ne one [facility] acetonide acetonide acetonide Urology 0.1 % 0.1 % 0.1 % topical topical topical cream cream cream Immunizations Ordered Immunization Filled Immunization Date Status Commen ts Source Name Name pneumococcal pneumococcal 2018-11-17 Completed [facility] tro conjugate PCV 13 conjugate PCV 13 00:00:00 Ur ology influenza, influenza, 2018-11-17 Completed [facility] injectable, injectable, 00:00:00 Urology quadrivalent quadrivalent pneumococcal pneumococcal 2018-11-17 Completed [facility] conjugate PCV 13 conjugate PCV 13 00:00:00 Ur og influenza, influenza, 2018-11-17 Completed [facility] injectable, injectable, 00:00:00 Urology quadrivalent quadrivalent pneumococcal pneumococcal 2018-11-17 Completed [place] [facility] tro conjugate PCV 13 conjugate PCV 13 00:00:00 Ur ology influenza, influenza, 2018-11-17 Completed [facility] injectable, injectable, 00:00:00 Urology quadrivalent quadrivalent pneumococcal pneumococcal 2018-11-17 Completed [place] Me tro conjugate PCV 13 conjugate PCV 13 00:00:00 Ur ology influenza, influenza, 2018-11-17 Completed [facility] injectable, injectable, 00:00:00 Urology quadrivalent quadrivalent pneumococcal pneumococcal 2018-11-17 Completed [place] Me tro conjugate PCV 13 conjugate PCV 13 00:00:00 Ur ology influenza, influenza, 2018-11-17 Completed [facility] injectable, injectable, 00:00:00 Urology quadrivalent quadrivalent pneumococcal pneumococcal 2018-11-17 Completed [facility] tro conjugate PCV 13 conjugate PCV 13 00:00:00 Ur ology influenza, influenza, 2018-11-17 Completed [facility] injectable, injectable, 00:00:00 Urology quadrivalent quadrivalent Vital Signs Vital Name Observation Time Observation Value Comments Source Height 2022-04-24 00:00:00 73 [in_i] [facility] Urology BMI (Body Mass 2022-04-24 00:00:00 33 kg/m2 [place] [facility] Index) Urology Body Weight 2022-04-24 00:00:00 250 [lb_av] [facility] Urology Height 2021-10-31 00:00:00 73 [in_i] [facility] Urology BMI (Body Mass 2021-10-31 00:00:00 33 kg/m2 [place] [facility] Index) Urology Body Weight 2021-10-31 00:00:00 250 [lb_av] [facility] Urology Height 2021-06-29 00:00:00 73 [in_i] [facility] Urology BMI (Body Mass 2021-06-29 00:00:00 32.3 kg/m2 [place] [facility] Index) Urology Body Weight 2021-06-29 00:00:00 245 [lb_av] [facility] Urology BP Diastolic 2021-03-02 00:00:00 80 mm[Hg] [facility] Urology Height 2021-03-02 00:00:00 73 [in_i] [facility] Urology BMI (Body Mass 2021-03-02 00:00:00 32.3 kg/m2 [place] [facility] Index) Urology BP Systolic 2021-03-02 00:00:00 152 mm[Hg] [facility] Urology Body Weight 2021-03-02 00:00:00 245 [lb_av] [facility] Urology BP Diastolic 2020-10-20 00:00:00 80 mm[Hg] [facility] Urology Height 2020-10-20 00:00:00 73 [in_i] [facility] Urology BMI (Body Mass 2020-10-20 00:00:00 32.3 kg/m2 [place] [facility] Index) Urology BP Systolic 2020-10-20 00:00:00 152 mm[Hg] [facility] Urology Body Weight 2020-10-20 00:00:00 245 [lb_av] [facility] Urology BP Diastolic 2020-05-31 00:00:00 80 mm[Hg] [facility] Urology Height 2020-05-31 00:00:00 73 [in_i] [facility] Urology BMI (Body Mass 2020-05-31 00:00:00 32.3 kg/m2 [place] [facility] Index) Urology BP Systolic 2020-05-31 00:00:00 152 mm[Hg] [facility] Urology Body Weight 2020-05-31 00:00:00 245 [lb_av] [facility] Urology Procedures Procedure Date / Time Performed Performing Clinician Anamaria kauffman Revision of Circumcision 2019-04-29 00:00:00 Solis ramos [facility] Prostatectomy with 2019-04-29 00:00:00 Efra Grey etro Bilateral Pelvic Lymph Urology Node Dissection, Robot Assisted Laparoscopic (Surg) Diagnostic Colonoscopy 2018-02-17 00:00:00 Lina on [facility] MUSCU- Hip Surgery [facility] Urology Removal of Gallbladder Efra Grey etro Urology MUSCU- Shoulder Surgery [place] [facility] MUSCU- Knee Surgery Kraus Marcella lei Urology Plan of Care Planned Activity Planned Date Details Comments Source Future Scheduled Test 2022-07-24 Screening for [facility] 07:35:12 malignant neoplasm of colon (procedure) [code = 058248189] Future Scheduled Test 2022-07-24 Screening for [facility] 07:35:12 malignant neoplasm of colon (procedure) [code = 009387529] Future Scheduled Test 2022-07-24 Screening for [facility] 07:35:12 malignant neoplasm of colon (procedure) [code = 739620981] Future Scheduled Test 2022-07-24 COVID-19 VACCINE (#1) [facility] 07:35:12 [code = COVID-19 VACCINE (#1)] Future Scheduled Test 2022-07-24 SHINGLES VACCINES (1 [facility] 07:35:12 of 2) [code = SHINGLES VACCINES (1 of 2)] Future Scheduled Test 2022-07-24 65+ PNEUMOCOCCAL [facility] 07:35:12 VACCINE (2 - PPSV23 if available, else PCV20) [code = 65+ PNEUMOCOCCAL VACCINE (2 - PPSV23 if available, else PCV20)] Future Scheduled Test 2022-07-24 INFLUENZA VACCINE [facility] 07:35:12 [code = INFLUENZA VACCINE] Future Scheduled Test 2022-07-24 Screening for [facility] 07:35:12 malignant neoplasm of colon (procedure) [code = 058570746] Future Scheduled Test 2022-07-24 Screening for [facility] 07:35:12 malignant neoplasm of colon (procedure) [code = 246227107] Diagnostic Test 2021-10-31 testosterone, total, [place] [facility] Pending 00:00:00 serum [code = Urology testosterone, total, serum] Diagnostic Test 2021-10-31 PSA, serum or plasma [place] [facility] Pending 00:00:00 [code = PSA, serum or Urolog y plasma] Future Appointment 2022-10-24 Kirby Askew, [address] 00:00:00 [address]; , [place] [address] Encounters Start End Encounter Admission Attending Care Care Encounter Source Date/Time Date/Time Type Type Clinicians Facility Department ID 2022-04-24 2022-04-24 Outpatient Goldfarb_D [facility] [id number] [place] 00:00:00 00:00:00 [id number] [facility] 2022-04-24 2022-04-24 Outpatient Goldfarb_D [facility] [id number] [place] 00:00:00 00:00:00 [id number] [facility] 2022-04-24 2022-04-24 Kirby [facility] [place] - [id number] H [facility] 00:00:00 00:00:00 Lara Reynold [facility] : [address] [facility] [address], [place] [address] , Ph. 2022-03-08 2022-03-08 Outpatient Goldfarb_D [facility] [id number] [place] 00:00:00 00:00:00 [id number] [facility] 2021-11-05 2021-11-05 Outpatient Goldfarb_D [facility]U [id number] [place] 00:00:00 00:00:00 [id number] [facility] 2021-10-31 2021-10-31 Outpatient Goldfarb_D [facility]U [id number] [place] 00:00:00 00:00:00 [id number] [facility] 2021-10-31 2021-10-31 Kirby [facility] [place] - [id number] [facility] 00:00:00 00:00:00 LaraReynold Cardoso y : [address] [facility] [address], [place] [address] , Ph. 2021-10-31 2021-10-31 Outpatient Jamilah, [facility]U [id number] 00:00:00 00:00:00 Kirby Bermudez [id number] 2021-10-30 2021-10-30 Outpatient Goldfarb_D [facility]U [id number] [place] 00:00:00 00:00:00 [id number] [facility] 2021-10-24 2021-10-24 Outpatient Goldfarb_D [facility]U [id number] [place] 00:00:00 00:00:00 [id number] [facility] 2021-10-22 2021-10-22 Outpatient Goldfarb_D [facility]U [id number] [place] 00:00:00 00:00:00 [facility] 2021-07-02 2021-07-02 Outpatient Goldfarb_D [facility]U [id number] [place] 09:36:00 09:36:00 [facility] 2021-06-29 2021-06-29 Outpatient Goldfarb_D [facility]U [id number] [place] 11:07:00 11:07:00 [facility] 2021-06-29 2021-06-29 Kirby [facility] [place] - [id number] [facility] 00:00:00 00:00:00 LaraReynold Cardoso Urolog y MD: [address] Nam [facility] [address], [place] [address] , Ph. 2021-06-29 2021-06-29 Outpatient Jamilah, HMU HMU [id number] 00:00:00 00:00:00 Kirby Bermudez [id number] 2021-06-28 2021-06-28 Outpatient Goldfarb_D HMU [facility]U [id number] [place] 06:40:00 06:40:00 [facility] 2021-06-26 2021-06-26 Outpatient Goldfarb_D HMU HMU [id number] [place] 06:04:00 06:04:00 [facility] 2021-04-14 2021-04-14 Outpatient Goldfarb_D HMU HMU [id number] [place] 03:09:00 03:09:00 [facility] 2021-04-14 2021-04-14 Outpatient Goldfarb_D HMU [facility]U [id number] [place] 03:09:00 03:09:00 [facility] 2021-03-10 2021-03-10 Outpatient Goldfarb_D HMU [facility]U [id number] [place] 02:36:00 02:36:00 [facility] 2021-03-02 2021-03-02 Outpatient Goldfarb_D HMU HMU [id number] [place] 10:54:00 10:54:00 [facility] 2021-03-02 2021-03-02 Kirby [facility] - [id number] H yao 00:00:00 00:00:00 Reynold Cih: [address], [place] [address] , Ph. 2021-03-02 2021-03-02 Outpatient Jamilah, HMU HMU [id number] 00:00:00 00:00:00 Kirby Bermudez [id number] 2021-01-06 2021-01-06 Outpatient Goldfarb_D [facility]U [facility]U [id number] [place] 02:27:00 02:27:00 [id number] [facility] 2020-12-02 2020-12-02 Outpatient Goldfarb_D [facility]U [facility]U [id number] [place] 03:52:00 03:52:00 [id number] [facility] 2020-10-28 2020-10-28 Outpatient Goldfarb_D HMU [facility]U [id number] [place] 03:06:00 03:06:00 [id number] [facility] 2020-10-20 2020-10-20 Outpatient Goldfarb_D [facility]U [facility]U [id number] [place] 12:02:00 12:02:00 [id number] [facility] 2020-10-20 2020-10-20 Outpatient Jamilah, HMU HMU [id number] 00:00:00 00:00:00 Kirby Bermudez [id number] 2020-10-20 2020-10-20 Kirby [facility] [place] - [id number] [facility] 00:00:00 00:00:00 Reynold Chi: [address], [place] [address] , Ph. 2020-09-18 2020-09-18 Outpatient Goldfarb_D HMU [facility]U [id number] [place] 01:51:00 01:51:00 [id number] [facility] 2020-06-21 2020-06-21 Outpatient Goldfarb_D HMU U [id number] [place] 01:04:00 01:04:00 [id number] [facility] 2020-05-31 2020-05-31 Outpatient Goldfarb_D [facility]U U [id number] [place] 11:36:00 11:36:00 [id number] [facility] 2020-05-31 2020-05-31 Outpatient Jamilah, HMU U [id number] 00:00:00 00:00:00 Kirby Bermudez [id number] 2020-05-31 2020-05-31 Kirby [facility] [place] [facility] [id number] [facility]:00 00:00:00 Laraharsh Askew [facility] MD: [id number], [place] [address] , Ph. 2020-05-26 2020-05-26 Outpatient Goldfarb_D [facility]U U [id number] [place] 11:04:00 11:04:00 [id number] [facility] 2019-04-29 2019-04-30 Outpatient JAMILAH, [facility] [id number] [place] 00:00:00 00:00:00 KIRBY [address] 2019-04-20 2019-04-20 Outpatient JAMILAH, [facility] [id number] [place] 00:00:00 00:00:00 KIRBY [address] 2019-04-20 2019-04-20 Outpatient JAMILAH, [facility] [id number] [place] 00:00:00 00:00:00 KIRBY [address] 2019-03-25 2019-03-25 Outpatient JAMILAH, [facility] [id number] [place] 00:00:00 00:00:00 KIRBY [address] 2019-03-25 2019-03-25 Outpatient JAMILAH, [facility] [id number] [place] 00:00:00 00:00:00 KIRBY [address] 2019-03-25 2019-03-25 Outpatient JAMILAH, [facility] [id number] [place] 00:00:00 00:00:00 KIRBY [address] Results Test Description Test Time Test Comments Results Result Comments Source Hepatic function 2000 panel - Serum or Plasma 2022-04-20 00: 00:00 Test Item Value Reference Range Interpretation Comme nts Protein [Mass/volume] in Serum 7.1 g/dL 6.1-8.1 or Plasma (test code = 2885-2) Albumin [Mass/volume] in Serum 4.3 g/dL 3.6-5.1 or Plasma (test code = 1751-7) Globulin [Mass/volume] in 2.8 g/dL (calc) 1.9-3.7 Serum by calculation (test code = 79889-8) Albumin/Globulin [Mass Ratio] 1.5 (calc) 1.0-2.5 in Serum or Plasma (test code = 1759-0) Bilirubin.total [Mass/volume] 0.5 mg/dL 0.2-1.2 in Serum or Plasma (test code = 1974-) Bilirubin.direct [Mass/volume] 0.1 mg/dL See_Comment [Automated message] The in Serum or Plasma (test code system which generated = 1967-08) this result tra nsmitted reference range : < or = 0.2. The refere nce range was not used to interpret this result as normal/abnormal . Bilirubin.indirect 0.4 mg/dL (calc) 0.2-1.2 [Mass/volume] in Serum or Plasma (test code = 1970-02) Alkaline phosphatase 68 U/L 35-144 [Enzymatic activity/volume] in Serum or Plasma (test code = 6768-6) Aspartate aminotransferase 20 U/L 10-35 [Enzymatic activity/volume] in Serum or Plasma (test code = 1920-8) Alanine aminotransferase 14 U/L 9-46 [Enzymatic activity/volume] in Serum or Plasma (test code = 1742-6) [place] [facility] UrologyProstate specific Ag [Mass/volume] in Serum or Plasma by Detection limit <= 0.01 ng/[id number] 00:00:00 Test Item Value Reference Range Interpretation Comments Prostate specific Ag [Mass/volume] in <0.02 Serum or Plasma by Detection limit <= 0.01 ng/mL (test code = 34652-8) [facility] UrologyHemoglobin and Hematocrit panel - [id number] 00:00:00 Test Item Value Reference Range Interpretation Comments Hemoglobin [Mass/volume] in Blood 14.1 g/dL 13.2-17.1 (test code = 718-7) Hematocrit [Volume Fraction] of 41.4 % 38.5-50.0 Blood by Automated count (test code = 4544-3) [facility] Urologyphysician request to hold patient [id number] 00:00:00?[place] ro UrologyTestosterone [Mass/volume] in Serum or Plasma 2022-04-20 00:00:00 Test Item Value Reference Range Interpretation Comments Testosterone [Mass/volume] in Serum 711 NG/dL 250-827 or Plasma (test code = 2986-8) [place] [facility] UrologyEstradiol (E2) [Mass/volume] in Serum or [id number] 00:00:00 Test Item Value Reference Range Interpretation Comments Estradiol (E2) 32 pg/mL See_Comment [Automated m essage] [Mass/volume] in Serum The s ystem which or Plasma (test code = gener ated this result 2243-4) transmitted ref erence range: < or = 3 9. The reference range was not used to interpr et this result as normal/abnormal . [facility] [id number] 14:37:00 Test Item Value Reference Range Interpretation Comments GLUBED (test code = GLUBED) 107 mg/dL 60-125 N - XR FLUORO FOR SPINE [id number] 12:44:00 Patient Name: SUSANNAH HUNTER Unit No: [id number] EXAMS: CPT CODE: [id number] XR FLUORO FOR SPINE INJ 82835 LUMBAR TRANSFORAMINAL INJECTION REFERRING PHYSICIAN: PREOPERATIVE DIAGNOSIS: Degenerative Lumbar Disc Disease. POSTOPERATIVE DIAGNOSIS: Bilateral lumbar radiculopathy PROCEDURES PERFORMED 1. Fluoroscopically guided needle localization of the bilateral L4, bilateral L5 spinal nerve/nerves with transforaminal epidural steroid injection/injections. 2. Transforaminal epidurogram/epidurogramsat bilateral L4, bilateral L5. FINDINGS: Poor filling all. Concordant provocation bilateral L4 back,bilateral L5 hips. Pain relief- 100%. ANTIBIOTIC: Cefazolin ESTIMATED BLOOD LOSS: Minimal ANESTHESIA:(TIVA )Total intravenous anesthetic (patient intolerant to sedatives and hypnotics) COMPLICATIONS: None DETAILS OF PROCEDURE: After obtaining stable vital signs, informed consent and IV access, with noknown contraindications to proceeding, the patient was taken to the fluoroscopy suite and placed in a prone position with all extremities padded and appropriate monitors placed. A sterile prep and drape was performed over the lumbosacral spine. Using fluoroscopic visualization at each level the insertion site was marked for a paravertebral approach to the foramen. Using standard technique, a 25 gaugeneedle was advanced to the base of the pedicle. In AP view, final positioning was obtained outside the 6 on the clock position on the pedicle. Then, 1 ml of Isovue-300 contrast was injected to producethe epidurograms. No paresthesias were elicited with needle insertion or injection and there were nosigns of intravascular or intrathecal uptake. Then, with 1 ml of 4% lidocaine and 10 mg of triamcinolone was injected incrementally with frequent negative aspirations. There were no signs of intravascular or intrathecal uptake. Each subsequent level was done using the same technique and medications. The patient's vital signs remained stable. The patient was taken to the PACU in good condition. at 6394 Reported and signed by: Que Boo [facility] NAME: SUSANNAH HUNTER [address] [place] [address] PHYS: Alek Mckeon MD [place], [place] [address] : 1955 AGE: 63 SEX: M LOC: AugustinaELIZABETH PHONE #: [phone] EXAM DATE: 12/11/2018 STATUS: REG [facility] FAX #: [phone] RAD #: D/C DT PAGE 1 Signed Report (CONTINUED) Patient Name: SUSANNAH HUNTER Unit No: [id number] EXAMS: CPT CODE: [id number] XR FLUORO FOR SPINE INJ 70513 (Continued) CC: Technologist: Kelsey Marroquin(R) Transcribed D/ (5515) PatyD [facility] NAME: SUSANNAH HUNTER [address] [place] [address] PHYS: Alek Mckeon MD [place], [place] [address] : 1955 AGE: 63 SEX: M LOC: SUSY PHONE #: [phone] EXAM DATE: 12/11/2018 STATUS: REG [facility] [place] FAX #: [phone] RAD #: D/C DT PAGE 2 Signed Report Patient Name: SUSANNAH HUNTER Unit No: [id number] EXAMS: CPT CODE: [id number] XR FLUORO FOR SPINE INJ 47603 (Continued) Orig Print D/T: S: 12/11/2018 (1248) [facility] NAME: SUSANNAH HUNTER [address] [facility] PHYS: Alek Mckeon MD [place], [place] [address] : 1955 AGE: 63 SEX: M LOC: SUSY PHONE #: [phone] EXAM DATE: 12/11/2018 STATUS: REG [facility] [place] FAX #: [phone] RAD #: D/C DT PAGE 3 Signed [id number] 10:40:00 Test Item Value Reference Range Interpretation Comments GLUBED (test code = GLUBED) 119 mg/dL 60-125 N
[2022-08-01] MEDS ORDERED: SMZ./TMP. 800/160 MG TABLET ONE (23:21)
[2022-08-01] MEDS ORDERED: CEFTRIAXONE 1000 MG/VIAL ONE (23:21)
[2022-08-01] MEDS ORDERED: WATER FOR INJ,STERILE 10 ML ONE (23:22)
--- NOTE | 2022-08-02 02:02 | ER ---
Nurse's Notes [facility] Name: Marshall Shaw Age: 67 yrs Sex: Male : 1955 Arrival Date: 08/01/2022 Time: 22:43 Bed 17 Private MD: Diagnosis: Postoperative incision infection, right shoulder subcutaneous abscess with spontaneous drainage Presentation: 08/01 22:48 Chief complaint: Patient states: " I have an infected place where they took stitches vc1 out Friday from a surgery. I have been wondering why I haven't fell well for the last few days". Coronavirus screen: Vaccine status: Patient reports receiving the 1st dose of the Covid vaccine. [employer] Client denies travel out of the [place] in the last 14 days. At this time, the client does not indicate any symptoms associated with coronavirus-19. Ebola Screen: Patient negative for fever greater than or equal to 101.5 degrees Fahrenheit, and additional compatible Ebola Virus Disease symptoms Patient denies exposure to infectious person. Patient denies travel to an Ebola-affected area in the 21 days before illness onset. No symptoms or risks identified at this time. Risk Assessment: Do you want to hurt yourself or someone else? Patient reports no desire to harm self or others. Onset of symptoms was August 01, 2022 at 22:10. 22:48 Method Of Arrival: Ambulatory vc1 22:48 Acuity: MARC 3 vc1 22:56 Initial Sepsis Screen: Does the patient meet any 2 criteria? No. Patient's initial vc1 sepsis screen is negative. Does the patient have a suspected source of infection? Yes: Skin breakdown/wound. Care prior to arrival: Medication(s) given: amoxicillin 500mg. Triage Assessment: 22:52 General: Appears in no apparent distress. uncomfortable, Behavior is calm, cooperative, vc1 appropriate for age. Pain: Complains of pain in anterior aspect of right shoulder Pain does not radiate. EENT: No deficits noted. No signs and/or symptoms were reported regarding the EENT system. Neuro: Level of Consciousness is awake, alert, obeys commands, Oriented to person, place, time, situation, Appropriate for age. Cardiovascular: No deficits noted. Respiratory: Airway is patent Respiratory effort is even, unlabored, Respiratory pattern is regular, symmetrical. GI: No deficits noted. No signs and/or symptoms were reported involving the gastrointestinal system. : No deficits noted. No signs and/or symptoms were reported regarding the genitourinary system. Derm: Reports pain infection to surgical site. Musculoskeletal: No deficits noted. No signs and/or symptoms reported regarding the musculoskeletal system. Historical: - Allergies: 22:50 No Known Allergies; vc1 - PMHx: 22:50 cva; Diabetes mellitus; Myocardial infarction; Hypertensive disorder; prostate cancer; vc1 remission; 22:52 Hypercholesterolemia; neuropathy; vc1 - PSHx: 22:50 Cholecystectomy; cardiac stents; vc1 - Immunization history:: Adult Immunizations Client reports receiving the Naresh \\T\\ Naresh single-dose vaccine. - Social history:: Smoking status: Patient denies any tobacco usage or history of. - Family history:: not pertinent. Screenin:56 [facility] ED Fall Risk Assessment (Adult) History of falling in the last 3 months, ha1 including since admission No falls in past 3 months (0 pts) Confusion or Disorientation No (0 pts) Intoxicated or Sedated No (0 pts) Impaired Gait No (0 pts) Mobility Assist Device Used No (0 pt) Altered Elimination No (0 pt) Score/Fall Risk Level 0 - 2 = Low Risk Oriented to surroundings, Maintained a safe environment, Educated pt \\T\\ family on fall prevention, incl call for assistance when getting out of bed. Abuse screen: Denies threats or abuse. Denies injuries from another. Nutritional screening: No deficits noted. Tuberculosis screening: No symptoms or risk factors identified. Assessment: 22:56 General: Appears comfortable, Behavior is calm, cooperative. Pain: Complains of pain in ha1 anterior aspect of right shoulder Pain does not radiate. Pain currently is 7 out of 10 on a pain scale. Neuro: Level of Consciousness is awake, alert, obeys commands, Oriented to person, place, time, situation. Cardiovascular: Patient's skin is warm and dry. Respiratory: Airway is patent Respiratory effort is even, unlabored, Respiratory pattern is regular, symmetrical. GI: No signs and/or symptoms were reported involving the gastrointestinal system. Abdomen is flat, non-distended. : No signs and/or symptoms were reported regarding the genitourinary system. Derm: Skin is pink, warm \\T\\ dry. Musculoskeletal: Circulation, motion, and sensation intact. Range of motion: limited in right arm Reports pt. states "I had surgery on my right shoulder and I think my surgery got infected.". 23:50 Reassessment: Patient and/or family updated on plan of care and expected duration. Pain ha1 level reassessed. Patient is alert, oriented x 3, equal unlabored respirations, skin warm/dry/pink. 08/02 00:51 Reassessment: Patient and/or family updated on plan of care and expected duration. Pain ha1 level reassessed. Patient is alert, oriented x 3, equal unlabored respirations, skin warm/dry/pink. 01:50 Reassessment: Patient and/or family updated on plan of care and expected duration. Pain ha1 level reassessed. Patient is alert, oriented x 3, equal unlabored respirations, skin warm/dry/pink. Vital Signs: 08/01 22:48 Weight 113.4 kg; Height 6 ft. 1 in. ; Pain 9/10; vc1 22:55 BP 160 / 76; Pulse 67; Resp 18; Temp 99.2; Pulse Ox 97% ; vc1 23:15 BP 129 / 65; Pulse 59; Resp 20 S; Pulse Ox 96% on R/A; ha1 08/02 00:15 BP 125 / 63; Pulse 60; Resp 18 S; Pulse Ox 97% on R/A; ha1 01:30 BP 127 / 74; Pulse 55; Resp 19 S; Pulse Ox 98% ; ha1 08/01 22:48 Body Mass Index 32.98 (113.40 kg, 185.42 cm) vc1 08/01 22:48 Pain Scale: Adult vc1 ED Course: 08/01 22:46 Patient arrived in ED. jj6 22:50 Triage completed. vc1 22:52 Arm band placed on left wrist. vc1 22:56 Patient has correct armband on for positive identification. Bed in low position. Call ha1 light in reach. Side rails up X 1. 22:57 Sabino Vazquez MD is Attending Physician. sp4 23:10 Meli Koo RN is Primary Nurse. ha1 23:42 Humerus Right XRAY In Process Unspecified. EDMS 08/02 00:51 Door closed. Noise minimized. Warm blanket given. ha1 02:33 No provider procedures requiring assistance completed. Patient did not have IV access ha1 during this emergency room visit. Administered Medications: 08/01 23:24 Drug: Rocephin (cefTRIAXone) IM 1 grams Route: IM; Site: left ventrogluteal; ha1 23:50 Follow up: Response: No adverse reaction ha1 23:24 Drug: Trimethoprim-Sulfamethoxazole PO (160 mg-800 mg (DS) 1 tablet Route: PO; ha1 23:50 Follow up: Response: No adverse reaction ha1 Medication: 08/02 02:34 VIS not applicable for this client. ha1 Outcome: 02:01 Discharge ordered by sp4 02:33 Discharged to home ambulatory. ha1 02:33 Condition: stable 02:33 Discharge instructions given to patient, Instructed on discharge instructions, follow up and referral plans. medication usage, Demonstrated understanding of instructions, follow-up care, medications, Prescriptions given X 2. 02:34 Patient left the ED. ha1 Signatures: Dispatcher [employer] EDMS Ebony Ford [id number] Diane Chen RN RN 1 Meli Koo RN RN ha1 Sabino Vazquez MD MD sp4
--- NOTE | 2022-08-02 02:02 | EDPHYS ---
Physician Documentation [facility] Name: Marshall Shaw Age: 67 yrs Sex: Male : 1955 Arrival Date: 08/01/2022 Time: 22:43 Bed 17 Private MD: ED Physician Sabino Vazquez HPI: 08/01 22:57 This 67 yrs old White Male presents to ER via Ambulatory with complaints of Post sp4 Surgical Pain, POSSIBLE INFECTION-SURGICAL SITE. 22:57 . sp4 23:49 Patient presents with a right shoulder infected incision from recent surgery. Patient sp4 has had right arm surgery at [facility] by Dr. Severino Mcclain on 07/17/2022 . Patient now reports that incision to the right lateral shoulder area is red tender and is draining purulent debris. . 08/02 01:55 Patient states there is increasing pain at the site of incision. . sp4 Historical: - Allergies: 08/01 22:50 No Known Allergies; vc1 - PMHx: 22:50 cva; Diabetes mellitus; Myocardial infarction; Hypertensive disorder; prostate cancer; vc1 remission; 22:52 Hypercholesterolemia; neuropathy; vc1 - PSHx: 22:50 Cholecystectomy; cardiac stents; vc1 - Immunization history:: Adult Immunizations Client reports receiving the Naresh \T\ Naresh single-dose vaccine. - Social history:: Smoking status: Patient denies any tobacco usage or history of. - Family history:: not pertinent. ROS: 08/02 01:55 Constitutional: Negative for fever, chills, and weight loss, Eyes: Negative for injury, sp4 pain, redness, and discharge, ENT: Negative for injury, pain, and discharge, Neck: Negative for injury, pain, and swelling, Cardiovascular: Negative for chest pain, palpitations, and edema, Respiratory: Negative for shortness of breath, cough, wheezing, and pleuritic chest pain, Abdomen/GI: Negative for abdominal pain, nausea, vomiting, diarrhea, and constipation, Back: Negative for injury and pain, : Negative for injury, bleeding, discharge, and swelling, MS/Extremity: Negative for injury and deformity, positive for right shoulder postoperative incision without redness, swelling, purulent drainage, and pain Skin: Negative for injury, rash, positive for redness and swelling right shoulder postoperative incision Neuro: Negative for headache, weakness, numbness, tingling, and seizure, Psych: Negative for depression, anxiety, Allergy/Immunology: Negative for hives, rash, and allergies Endocrine: Negative for neck swelling, polydipsia, polyuria, polyphagia, and weight changes Hematologic/Lymphatic: Negative for swollen nodes, abnormal bleeding, and unusual bruising Exam: 01:55 Constitutional: This is a well developed, well nourished patient who is awake, alert, sp4 and in no acute distress. Head/Face: Normocephalic, atraumatic. Eyes: Pupils equal round and reactive to light, extra-ocular motions intact. Lids and lashes normal. Conjunctiva and sclera are not injected. Cornea within normal limits. Periorbital areas with no swelling, redness, or edema. ENT: Nares patent. No nasal discharge, no septal abnormalities noted. Tympanic membranes are normal and external auditory canals are clear. Oropharynx with no redness, swelling, or masses, exudates, or evidence of obstruction, uvula midline. Mucous membranes moist. Neck: Trachea midline, no thyromegaly or masses palpated, and no cervical lymphadenopathy. Supple, full range of motion without nuchal rigidity, or vertebral point tenderness. Chest/axilla: Normal chest wall appearance and motion. Nontender with no deformity. No lesions are appreciated. Cardiovascular: Regular rate and rhythm with a normal S1 and S2. No gallops, murmurs, or rubs. Normal PMI, no JVD. No pulse deficits. Respiratory: Lungs have equal breath sounds bilaterally, clear to auscultation and percussion. No rales, rhonchi or wheezes noted. No increased work of breathing, no retractions or nasal flaring. Abdomen/GI: Soft, non-tender, with normal bowel sounds. No distension or tympany. No guarding or rebound. No evidence of tenderness throughout. Back: No spinal tenderness. No costovertebral tenderness. Skin: Warm, dry with normal turgor. Normal color with no rashes, no lesions, there is right lateral shoulder postoperative incision at the site of right lateral deltoid musculature that is 1 cm long. There is active purulent drainage redness swelling small area of cellulitis around incision. There is what appears to be subcutaneous abscess that is spontaneously draining at this time MS/ Extremity: Pulses equal, no cyanosis. Neurovascular intact. Right upper extremity is in a shoulder immobilizer, secondary to recent surgery, decreased range of motion of right shoulder, postoperative incision infection see description above Neuro: Awake and alert, GCS 15, oriented to person, place, time, and situation. Cranial nerves II-XII grossly intact. Motor strength 5/5 in all extremities. Sensory grossly intact. Psych: Awake, alert, with orientation to person, place and time. Behavior, mood, and affect are within normal limits Vital Signs: 08/01 22:48 Weight 113.4 kg; Height 6 ft. 1 in. ; Pain 9/10; vc1 22:55 BP 160 / 76; Pulse 67; Resp 18; Temp 99.2; Pulse Ox 97% ; vc1 23:15 BP 129 / 65; Pulse 59; Resp 20 S; Pulse Ox 96% on R/A; ha1 08/02 00:15 BP 125 / 63; Pulse 60; Resp 18 S; Pulse Ox 97% on R/A; ha1 01:30 BP 127 / 74; Pulse 55; Resp 19 S; Pulse Ox 98% ; ha1 08/01 22:48 Body Mass Index 32.98 (113.40 kg, 185.42 cm) vc1 08/01 22:48 Pain Scale: Adult vc1 MDM: 08/01 23:10 Patient medically screened. sp4 08/02 01:55 Differential Diagnosis Postoperative infection, postoperative seroma, subcutaneous sp4 abscess, cellulitis. Data reviewed: vital signs, nurses notes, radiologic studies, plain films. Consideration of Admission/Observation Escalation of care including admission/observation considered. ED course: Right shoulder x-ray revealed no fracture or dislocation, multiple bony screws overlying the right humeral head, no significant sclerotic or lytic abscess destructive bone lesion, joint spaces unremarkable, soft tissue unremarkable, no radiographic evidence of right humerus osteomyelitis. Right humeral head postsurgical changes.. ED course: Abscess at this time is spontaneously draining, and there appears to be postoperative incision infection, started on extended course of p.o. Bactrim and Keflex, patient will be advised to see his orthopedist Dr. Severino Mcclain as soon as possible for in office evaluation for postoperative infection . . 08/01 23:31 Order name: Humerus Right XRAY sp4 Administered Medications: 08/01 23:24 Drug: Rocephin (cefTRIAXone) IM 1 grams Route: IM; Site: left ventrogluteal; ha1 23:50 Follow up: Response: No adverse reaction ha1 23:24 Drug: Trimethoprim-Sulfamethoxazole PO (160 mg-800 mg (DS) 1 tablet Route: PO; ha1 23:50 Follow up: Response: No adverse reaction ha1 Disposition Summary: 08/02/22 02:01 Discharge Ordered Location: Home sp4 Problem: new sp4 Symptoms: have improved sp4 Condition: Stable sp4 Diagnosis - Postoperative incision infection, right shoulder subcutaneous abscess with sp4 spontaneous drainage Followup: sp4 - With: Private Physician - When: 1 - 2 days - Reason: Recheck today's complaints Discharge Instructions: - Discharge Summary Sheet sp4 - Skin Abscess sp4 Forms: - Antibiotic Education sp4 Prescriptions: - Cephalexin 500 mg Oral Capsule - take 1 capsule by ORAL route every 8 hours for 14 days; 42 capsule; Refills: 0, sp4 Product Selection Permitted - Bactrim DS 800-160 mg Oral Tablet - take 1 tablet by ORAL route every 12 hours for 14 days; 28 tablet; Refills: 0, sp4 Product Selection Permitted Signatures: Dispatcher [employer] EDDiane River RN RN vc1 Meli Koo RN RN ha1 Sabino Vazquez MD MD sp4 Corrections: (The following items were deleted from the chart) 23:38 23:10 Humerus Left+RAD.RAD.BRZ ordered. EDMS EDMS
[2022-08-02 03:32] VITALS: TEMP 99.2
[2022-08-02 03:38] VITALS: BP 127/74; O2SAT 98
--- NOTE | 2022-08-02 15:28 | RAD REPORT ---
EXAM DESCRIPTION: RAD - Humerus Right - 08/01/2022 11:41 pm CLINICAL HISTORY: XR Right Humerus 2 Views CLINICAL HISTORY: Wound infection Humerus Right COMPARISON: None. TECHNIQUE: Right Humerus 2 Views FINDINGS: No fracture or dislocation. Multiple bone screws overlie right humeral head. No significant sclerotic/lytic destructive bone lesion. Joint spaces unremarkable. Soft tissues unremarkable without air collections. IMPRESSION: 1. No radiographic evidence of right humerus osteomyelitis. 2. Right humeral head postsurgical changes. Electronically signed by: Valeriy Hoover MD 08/02/2022 12:55 AM CDT Due to temporary technical issues with the PACS/Fluency reporting system, reports are being signed by the in house radiologists without review as a courtesy to insure prompt reporting. The interpreting radiologist is fully responsible for the content of the report.
== END 2022-08-02 02:34 | disposition home or self-care (01) ==
LOC: ER 22:43
DX: T81.41XA Infection following a procedure, superficial incisional surgical site, initial encounter (principal); L03.113 Cellulitis of right upper limb; Z98.890 Other specified postprocedural states; I10 Essential (primary) hypertension; Z95.818 Presence of other cardiac implants and grafts
CPT/HCPCS: 73060; 96372; 99284; J0696